=== PATIENT | male | born 1935 | race Caucasian/White ===

== ENCOUNTER 2018-08-30 17:42 | Emergency (ER) | payer MEDICARE ==
[~2018-08-30] VITALS: Ht 188 cm; Wt 94.3 kg
[~2018-08-30 17:42] MED LIST: ALLOPURINOL 30300 M2 PO; HYDROCODONE-AP1 EAC6 PO; KEFLEX500 MG PO; LOSARTAN-HCTZ1 EAC1 PO
[2018-08-30 18:24] LABS: INFLUENZA A ANTIGEN None Detected (None Detect); INFLUENZA B ANTIGEN None Detected (None Detect)
[2018-08-30 18:46] VITALS: BP 156/57
== END 2018-08-30 18:50 | disposition home or self-care (01) ==
LOC: M.ERS 17:42
PROVIDERS: Nurse Practitioner Family
DX: J32.2 Chronic ethmoidal sinusitis (principal); J32.0 Chronic maxillary sinusitis; I10 Essential (primary) hypertension; M10.9 Gout, unspecified; Z90.49 Acquired absence of other specified parts of digestive tract; Z98.890 Other specified postprocedural states; Z88.0 Allergy status to penicillin